=== PATIENT | male | born 1965 | race Caucasian/White ===

== ENCOUNTER 2020-05-17 09:56 | Day surgery (SDC) | payer OTHER ==
[~2020-05-17] VITALS: Ht 180.3 cm; Wt 88.0 kg
--- NOTE | ~2020-05-17 | H ---
[facility] [place] [address] HISTORY AND PHYSICAL Name: KAT ALVAREZ Room #: PRE [facility] M.R.#: [id number] Admission: Attend Phys: Kenyon Magana MD Discharge: Date of : 63 Report #: [id number] THIS REPORT FOR: cc: Timothy Coffman James A. DO Chu, Peter Y. MD ~ CC: Timothy Magana DATE OF SERVICE: 05/17/2020 PREOPERATIVE DIAGNOSIS: Right inguinal hernia. HISTORY OF PRESENT ILLNESS: The patient is a 55-year-old who noticed a hernia on the right side recently. The patient noticed a right inguinal protrusion 4-6 weeks ago. He notices an asymmetry from his left side. He did have a previous left inguinal hernia repair. He is complaining of dull on the right side at the end of the day. 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 No nausea or vomiting. Bowels are working well. No difficulty urinating. The patient is an avid bicycle rider. The patient is confirmed to have right inguinal hernia repair on exam and he is recommended to proceed with surgery. PAST MEDICAL HISTORY: The patient has a left-sided inguinal hernia history and varicose veins history. He denies any other medical problems. No heart disease, lung disease, diabetes, liver or kidney disease. No bleeding disorder. No history of blood clot. MEDICATIONS: None. ALLERGIES: None. FAMILY HISTORY: Father recently of colon cancer complication. No other history in the family. SOCIAL HISTORY: The patient works in construction job. The patient does not smoke or drink. REVIEW OF SYSTEMS: No chest pain, shortness of breath, palpitation. No numbness or weakness. PHYSICAL EXAMINATION: GENERAL: He is a well-nourished male in no acute distress. HEENT: Pupils react to light. Extraocular muscles are intact. Oropharynx is clear. NECK: Soft and supple, no masses, no JVD. [facility] [address] [place] [address] HISTORY AND PHYSICAL Name: KAT ALVAREZ Room #: PRE [facility] M.R.#: [id number] Admission: Attend Phys: Kenyon Magana MD Discharge: Date of : 63 Report #: [id number] LUNGS: Clear to auscultation. HEART: Regular rate and rhythm. No murmur or gallop. ABDOMEN: Soft, nondistended, nontender. No mass, no ascites, no guarding. He is soft. GROIN: The patient does have a reducible right inguinal hernia. This is a moderate size. Testicles are normal. No recurrent hernia on the left side. EXTREMITIES: The patient a previous left leg varicose veins, are much improved. No significant recurrence. No edema. No cyanosis. Moves all extremities well. Sensation is intact. IMPRESSION: The patient is a 55-year-old with a symptomatic right inguinal hernia. Previous left inguinal hernia fixed. The patient is to have the open surgery. Mesh is being used. He understands this. Risk of mesh infection, hernia recurrence was discussed. Risk of bleeding and infection were discussed. The patient wishes to proceed. By: [id number] Kenyon Magana MD /nt
--- NOTE | ~2020-05-17 | O ---
[facility] [place] [address] OPERATIVE REPORT Name: KAT ALVAREZ Room #: [facility].#: [id number] Admission: 05/17/20 Attend Phys: Kenyon Magana MD Discharge: 05/17/20 Date of : 63 Report #: [id number] THIS REPORT FOR: cc: Timothy Coffman James A. DO Chu, Peter Y. MD ~ CC: Timothy Magana DATE OF SERVICE: 05/17/2020 PREOPERATIVE DIAGNOSIS: Right inguinal hernia. POSTOPERATIVE DIAGNOSIS: Right indirect inguinal hernia. SURGEON: Kenyon Magana M.D. ANESTHESIA: General anesthesia. COMPLICATIONS: None. BLOOD LOSS: 5 mL. DESCRIPTION OF PROCEDURE: With the patient under general anesthesia, the lower abdomen was prepped and draped in sterile fashion. IV antibiotic was administered. Timeout was performed. Transverse slightly oblique incision was made in the right lower quadrant above the pubic tubercle. After incising through the skin and subcutaneous tissue, the Walt's layer was divided. The fascia was then identified at the external oblique. The external oblique fiber was incised just above the internal ring. The fascia was then opened up opening the external ring. The cord structure was isolated. The cord structure was dissected free and there was an indirect hernia sac found. This was at the more proximal part of the cord. This was isolated from the surrounding tissue and then high ligation was performed with 2-0 PDS. The patient was noted to have a weakened wall at the internal ring. A large sized hernia Prolene system mesh was used. The circular posterior component was trimmed to a smaller size. Properitoneal space was dissected free at the internal ring. The circular part of the mesh was placed in the properitoneal space. This was opened up as much as possible. The mesh was then placed under the cord structure. A slit was made in the lateral aspect of the mesh for the cord to come through the oval portion of the mesh material. The mesh was sutured to the pubic tubercle and then the inguinal ligament along the lateral aspect of the mesh. The slit was sewn back together with this technique and then the knot was tied beyond the internal ring. The mesh was then tacked to the posterior rectus fascia with 3 separate sutures. The ilioinguinal nerve and iliohypogastric nerve preserved from harm. Irrigation was performed. The external oblique fascia was then [address] [address] OPERATIVE REPORT Name: ANTONIOKAT Fe Room #: [facility] Jeannie#: [id number] Admission: 05/17/20 Attend Phys: Kenyon Magana MD Discharge: 05/17/20 Date of : 63 Report #: [id number] closed with 2-0 PDS. The Walt's layer was reapproximated with 3-0 plain. Skin was closed with 5-0 PDS running subcuticular fashion. Dermabond was applied. Telfa, OpSite used for dressing. The patient was taken to recovery room in stable condition. By: Zayra: 05/17/20 [id number] Kenyon Magana MD /shaneka
[~2020-05-17 09:56] MED LIST: HYDROCODONE-AP1 EAC6 PO; MULTIVITAMINS1 EAC7 PO
[2020-05-17 10:45] LABS: HEMATOCRIT 49.7 % (42.0-52.0); HEMOGLOBIN 17.2 gm/dL (14.0-18.0)
[2020-05-17 10:46] VITALS: BP 142/90
[2020-05-17] MEDS ORDERED: LORCET 5-325 M1 EACH PO (13:59)
[2020-05-17 14:13] VITALS: BP 142/90
== END 2020-05-17 14:45 | disposition home or self-care (01) ==
LOC: OR 09:56 → TBA 09:57 → OR 10:35
PROVIDERS: ATTEND Surgery
DX: K40.90 Unilateral inguinal hernia, without obstruction or gangrene, not specified as recurrent (principal); Z11.59 Encounter for screening for other viral diseases; Z98.890 Other specified postprocedural states; Z85.828 Personal history of other malignant neoplasm of skin; Z79.891 Long term (current) use of opiate analgesic
CPT/HCPCS: 50010; 50101; 50386; 50403; 52061; 54118; 56524; 56525; 62110; 62900; 70005